=== PATIENT | male | born 2000 | race Two or more races ===

== ENCOUNTER 2024-01-01 17:58 | Emergency (ER) | payer BC ==
[~2024-01-01] VITALS: Ht 175.3 cm; Wt 77.3 kg
[2024-01-01] MEDS ORDERED: KEN0.1O TOP (18:48)
[2024-01-01] MEDS: triamcinolone acetonide 40mg/ml inj IM ONE (19:23)
[2024-01-01 19:37] VITALS: BP 134/68; PULSE 62; RESP 16; TEMP 97.8; O2SAT 99
== END 2024-01-01 19:38 | disposition home or self-care (01) ==
LOC: ER 17:58
DX: L23.7 Allergic contact dermatitis due to plants, except food (principal); Z79.899 Other long term (current) drug therapy
CPT/HCPCS: 96372; 99283; J3301